=== PATIENT | female | born 1980 | race Caucasian/White ===

== ENCOUNTER 2019-11-23 09:01 | Observation (INO) ==
[2019-11-23 10:10] LABS: Basophils % 0.4 %; Eosinophils # 0.1 K/mcL (0.0-0.6); Eosinophils % 0.7 %; Hematocrit 37.5 % (35.3-44.9); Hemoglobin 12.8 g/dL (11.5-15.4); Immature Granulocytes % 0.4 % (0-4); Lymphocytes # 2.3 K/mcL (0.6-4.6); Lymphocytes % 32.5 %; Mean Corpuscular HGB Conc 34.1 g/dL (31.6-35.5); Mean Corpuscular Hemoglobin 34.5 pg (28.0-33.3); Mean Corpuscular Volume 101.1 fL (83.0-100.0); Mean Platelet Volume 9.2 fL (9.4-12.4); Monocytes # 0.6 K/mcL (0.0-1.3); Monocytes % 8.8 %; Neutrophils # 4.1 K/mcL (1.6-8.9); Platelet Count 375 K/mcL (140-400); Red Blood Count 3.71 M/mcL (3.82-4.97); Red Cell Distribution Width 14.6 % (11.5-14.5); Segmented Neutrophils % 57.2 %; White Blood Count 7.1 K/mcL (4.3-11.1)
[2019-11-23 10:14] LABS: Prothrombin Time 11.6 Seconds (9.4-12.1)
[2019-11-23 10:16] LABS: Activated Partial Thrombo Time 29.9 Seconds (26.0-36.0)
[2019-11-23 10:30] LABS: Bilirubin,Urine Negative (Negative); Blood,Urine Moderate (Negative); Clarity,Urine Turbid (Clear); Color,Urine Yellow (Yellow); Glucose,Urine (UA) Normal (Normal); Hyaline Casts,Urine Moderate per lpf (None Seen); Ketones,Urine Trace mg/dL (Negative); Leukocyte Esterase,Urine Negative (Negative); Mucus,Urine Moderate per lpf (None-Few); Nitrite,Urine Negative (Negative); Protein,Urine 70 mg/dL (Neg-Trace); Renal Epithelial Cells,Urine Few per hpf (None-Few); Specific Gravity,Urine > 1.030 (1.010-1.025); Squamous Epithelial Cell,Urine Moderate per hpf (None-Few); Transitional Epi Cells,Urine Few per hpf (None-Few)
[2019-11-23 10:31] LABS: BUN/Creatinine Ratio 20 (6-26); Blood Urea Nitrogen 10 mg/dL (6-20); Calcium 9.1 mg/dL (8.6-10.3); Carbon Dioxide 31 mEq/L (23-29); Chloride 99 mEq/L (98-107); Glucose 109 mg/dL (70-105); Osmolality,Calculated 284 (280-300); Potassium 3.2 mEq/L (3.5-5.1); Sodium 137 mEq/L (136-145); eGFR For African Americans > 60 (> 60); eGFR For Non-African Americans > 60 (> 60)
[2019-11-23] MEDS ORDERED: Naloxone 0.4 MG/ML INJ IVP PRN (11:01)
[2019-11-23] MEDS ORDERED: Ondansetron 4 MG/2 ML VIAL IVP PRN (11:01)
[2019-11-23] MEDS ORDERED: *HR* HYDROcodone/Acet 5/325 mg TABLET PO PRN (11:29)
[2019-11-23 12:11] LABS: C-Reactive Protein 20 mg/L (Less than 10)
[2019-11-23 12:15] LABS: Ferritin 102 ng/mL (10-120)
[2019-11-23 12:44] LABS: Appearance,CSF Clear (Clear)
[2019-11-23 12:45] LABS: Red Blood Cell,CSF < 2000 RBC/mcL
[2019-11-23] MEDS: Gabapentin 300 MG CAPSULE PO SCH ×2 (13:07→19:48)
[2019-11-23] MEDS: Acetaminophen 325 MG TABLET PO PRN ×2 (13:08→19:48)
[2019-11-23 13:26] LABS: Glucose,CSF 69 mg/dL (40-70); Total Protein,CSF 29 mg/dL (15-45)
[2019-11-23] MEDS: Nicotine 21 MG PATCH.TD24 TD SCH (14:07)
[2019-11-23] MEDS ORDERED: Gadolinium Contrast Agent (WT Based) IV PRN (14:34)
[2019-11-23 15:27] LABS: Lyme Disease Total Antibody Negative (Negative)
[2019-11-23 15:48] LABS: Thyroid Stimulating Hormone 3.018 mcIU/mL (0.340-5.600)
[2019-11-23 15:56] LABS: Folate 3.2 ng/mL (3.0-16.0)
[2019-11-23 15:57] LABS: Vitamin B12 206 pg/mL (250-1100)
[2019-11-23] MEDS: *HR* Heparin 5,000 UNIT/ML VIAL SQ SCH (16:15)
[2019-11-23] MEDS ORDERED: *HR* OxyCODONE/APAP 5/325 TABLET PO ONE (17:21)
[2019-11-23 17:54] LABS: HIV-1&2 Antibody & p24 Ag Nonreactive (Nonreactive)
[2019-11-23] MEDS ORDERED: *HR* OxyCODONE Immed Rel 5 MG TABLET PO ONE (19:56)
[2019-11-23] MEDS ORDERED: Potassium Chloride Elixir 20 MEQ/15 ML UDC PO ONE (21:00)
[2019-11-24] MEDS ORDERED: Gabapentin 300 MG CAPSULE PO ONE (00:40)
[2019-11-24 00:51] LABS: Basophils # 0.1 K/mcL (0.0-0.2); Basophils % 0.8 %; Eosinophils # 0.1 K/mcL (0.0-0.6); Eosinophils % 0.8 %; Hematocrit 35.9 % (35.3-44.9); Hemoglobin 12.2 g/dL (11.5-15.4); Immature Granulocytes % 0.3 % (0-4); Lymphocytes # 2.7 K/mcL (0.6-4.6); Lymphocytes % 41.5 %; Mean Corpuscular Hemoglobin 35.3 pg (28.0-33.3); Mean Corpuscular Volume 103.8 fL (83.0-100.0); Mean Platelet Volume 9.3 fL (9.4-12.4); Monocytes # 0.7 K/mcL (0.0-1.3); Neutrophils # 3.1 K/mcL (1.6-8.9); Platelet Count 366 K/mcL (140-400); Red Blood Count 3.46 M/mcL (3.82-4.97); Red Cell Distribution Width 14.7 % (11.5-14.5); Segmented Neutrophils % 46.6 %; White Blood Count 6.6 K/mcL (4.3-11.1)
[2019-11-24 01:19] LABS: BUN/Creatinine Ratio 26 (6-26); Blood Urea Nitrogen 13 mg/dL (6-20); Calcium 9.1 mg/dL (8.6-10.3); Carbon Dioxide 26 mEq/L (23-29); Chloride 102 mEq/L (98-107); Glucose 104 mg/dL (70-105); Magnesium 1.8 mg/dL (1.6-2.6); Osmolality,Calculated 282 (280-300); Potassium 4.1 mEq/L (3.5-5.1); Sodium 136 mEq/L (136-145); eGFR For African Americans > 60 (> 60); eGFR For Non-African Americans > 60 (> 60)
[2019-11-24] MEDS: *HR* Heparin 5,000 UNIT/ML VIAL SQ SCH ×2 (05:59→17:02)
[2019-11-24] MEDS: Acetaminophen 325 MG TABLET PO PRN ×2 (06:08→21:40)
[2019-11-24] MEDS ORDERED: predniSONE 20 MG TABLET PO SCH (09:00)
[2019-11-24] MEDS ORDERED: Nicotine 21 MG PATCH.TD24 TD SCH (09:00)
[2019-11-24] MEDS ORDERED: Pantoprazole 40 MG VIAL IVP SCH (09:00)
[2019-11-24] MEDS: Nicotine 21 MG PATCH.TD24 TD SCH (09:17)
[2019-11-24] MEDS: Gabapentin 300 MG CAPSULE PO SCH ×3 (09:17→20:02)
[2019-11-24] MEDS: Cyanocobalamin (B-12) 1,000 MCG/ML VIAL IM SCH (09:19)
[2019-11-24] MEDS: Famotidine 20 MG/2 ML VIAL IVP SCH ×2 (09:20→17:03)
[2019-11-24] MEDS: methylPREDNISolone 250 MG in 0.9 % Sodium Chloride 50 ML IVPB SCH ×2 (09:58→16:58)
[2019-11-24 12:02] LABS: C-Reactive Protein 13 mg/L (Less than 10); Chol/HDL Ratio 3.7 (0-4.9); Cholesterol 172 mg/dL (< 200); Creatine Kinase 10 Units/L (30-223); HDL Cholesterol 46 mg/dL (40-59); LDL Cholesterol,Calculated 95 mg/dL (< 100); Lactate Dehydrogenase 221 Units/L (140-271); Triglycerides 156 mg/dL (< 150)
[2019-11-24 12:29] LABS: Estimated Average Glucose 117 mg/dl; Hemoglobin A1C 5.7 %
[2019-11-24] MEDS ORDERED: *HR* OxyCODONE/APAP 5/325 TABLET PO ONE (13:08)
[2019-11-24] MEDS ORDERED: *HR* LORazepam 2 MG/ML VIAL IVP ONE (23:11)
[2019-11-25 01:16] LABS: Hematocrit 37.1 % (35.3-44.9); Hemoglobin 12.7 g/dL (11.5-15.4); Mean Corpuscular HGB Conc 34.2 g/dL (31.6-35.5); Mean Corpuscular Volume 102.2 fL (83.0-100.0); Mean Platelet Volume 9.5 fL (9.4-12.4); Platelet Count 387 K/mcL (140-400); Red Blood Count 3.63 M/mcL (3.82-4.97)
[2019-11-25 01:18] LABS: White Blood Count 10.6 K/mcL (4.3-11.1)
[2019-11-25 01:40] LABS: BUN/Creatinine Ratio 34 (6-26); Blood Urea Nitrogen 14 mg/dL (6-20); Calcium 9.1 mg/dL (8.6-10.3); Carbon Dioxide 23 mEq/L (23-29); Chloride 103 mEq/L (98-107); Glucose 187 mg/dL (70-105); Osmolality,Calculated 283 (280-300); Sodium 134 mEq/L (136-145); eGFR For African Americans > 60 (> 60); eGFR For Non-African Americans > 60 (> 60)
[2019-11-25] MEDS: methylPREDNISolone 250 MG in 0.9 % Sodium Chloride 50 ML IVPB SCH ×2 (01:44→08:13)
[2019-11-25] MEDS: Famotidine 20 MG/2 ML VIAL IVP SCH ×2 (04:57→17:55)
[2019-11-25] MEDS: *HR* Heparin 5,000 UNIT/ML VIAL SQ SCH ×2 (04:57→17:55)
[2019-11-25] MEDS: Gabapentin 300 MG CAPSULE PO SCH ×3 (08:07→20:01)
[2019-11-25] MEDS: Cyanocobalamin (B-12) 1,000 MCG/ML VIAL IM SCH (08:07)
[2019-11-25] MEDS: Nicotine 21 MG PATCH.TD24 TD SCH (08:07)
[2019-11-25] MEDS ORDERED: *HR* LORazepam 0.5 MG TABLET PO ONE (11:19)
[2019-11-25] MEDS ORDERED: Acetaminophen IV 500 MG/50 ML BAG IVPB ONE (16:46)
[2019-11-25] MEDS ORDERED: *HR* LORazepam 2 MG/ML VIAL IVP ONE (23:04)
[2019-11-26] MEDS: *HR* Heparin 5,000 UNIT/ML VIAL SQ SCH ×2 (05:20→18:05)
[2019-11-26] MEDS: Famotidine 20 MG/2 ML VIAL IVP SCH ×2 (05:20→18:05)
[2019-11-26] MEDS ORDERED: Acetaminophen IV 500 MG/50 ML BAG IVPB ONE (07:53)
[2019-11-26] MEDS: Cyanocobalamin (B-12) 1,000 MCG/ML VIAL IM SCH (07:57)
[2019-11-26] MEDS: Gabapentin 300 MG CAPSULE PO SCH ×3 (07:57→20:57)
[2019-11-26] MEDS: Nicotine 21 MG PATCH.TD24 TD SCH (07:58)
[2019-11-26 08:35] LABS: Hematocrit 36.6 % (35.3-44.9); Hemoglobin 12.1 g/dL (11.5-15.4); Mean Corpuscular HGB Conc 33.1 g/dL (31.6-35.5); Mean Corpuscular Hemoglobin 34.1 pg (28.0-33.3); Mean Corpuscular Volume 103.1 fL (83.0-100.0); Mean Platelet Volume 9.5 fL (9.4-12.4); Platelet Count 411 K/mcL (140-400); Red Blood Count 3.55 M/mcL (3.82-4.97); Red Cell Distribution Width 14.6 % (11.5-14.5)
[2019-11-26 08:36] LABS: White Blood Count 22.5 K/mcL (4.3-11.1)
[2019-11-26 08:57] LABS: BUN/Creatinine Ratio 58 (6-26); Blood Urea Nitrogen 28 mg/dL (6-20); Calcium 8.8 mg/dL (8.6-10.3); Carbon Dioxide 25 mEq/L (23-29); Chloride 103 mEq/L (98-107); Glucose 147 mg/dL (70-105); Osmolality,Calculated 292 (280-300); Sodium 137 mEq/L (136-145); eGFR For African Americans > 60 (> 60); eGFR For Non-African Americans > 60 (> 60)
[2019-11-26] MEDS ORDERED: *HR* LORazepam 0.5 MG TABLET PO ONE ×2 (10:24→14:04)
[2019-11-26] MEDS ORDERED: Potassium Chloride Elixir 20 MEQ/15 ML UDC PO ONE (11:12)
[2019-11-26 12:31] LABS: ANA IgG by ELISA NONE DETECTED (None Detected)
[2019-11-26 19:44] VITALS: BP 147/97
[2019-11-26] MEDS ORDERED: *HR* LORazepam 2 MG/ML VIAL IVP ONE (20:18)
[2019-11-27 16:25] LABS: SSA 52 (Anti-RO) Antibody 2 AU/mL (0-40); SSA 60 (Anti-RO) Antibody 0 AU/mL (0-40)
[2019-11-27 16:36] LABS: Purkinje Cell/ANNA IgG Scrn NONE DETECTED (None Detected)
[2019-11-29 11:09] LABS: Enterovirus RNA Qual (PCR) NOT DETECTED
[2019-12-02 14:48] LABS: Borrelia burgdorferi Abs CSF 0.03 LIV (<=0.99)
== END 2019-11-26 22:29 | disposition short-term general hospital (02) ==
LOC: EMEROOARM 09:01 → 3BNU 09:01
PROVIDERS: ADMIT Internal Medicine; ATTEND Internal Medicine